=== PATIENT | male | born 1995 | race Two or more races ===

== ENCOUNTER 2017-08-05 23:48 | Emergency (ER) | payer BC, OTHER ==
[2017-08-06 00:09] VITALS: BP 137/83; PULSE 78; TEMP 97.4; BMI 36.3
--- NOTE | 2017-08-06 01:49 | PDOC ---
History of Present Illness <Amanda Sommer - Last Filed: 08/06/17 03:20> - General History Source: Patient Exam Limitations: No Limitations - History of Present Illness Initial Comments: 08/06/17 02:11 The patient is a 21 year old male, with no significant past medical history, who presents to the emergency department with, 2 hours of sudden onset right ear pain. He describes his ear pain as a throbbing sensation with associated mild sore throat. He denies the use of cotton swabs. He denies any recent fevers, chills, headache or dizziness. He denies any recent nausea, vomit, diarrhea or constipation. He denies any recent chest pain or shortness of breath. He denies any recent dysuria, frequency, urgency or hematuria. Allergies: NKA Past surgical history: None reported. Social History: Nonsmoker. Denies EtOH use and recreational drug use. <Karen Romero - Last Filed: 08/06/17 03:24> - General Chief Complaint: Ear Problem Stated Complaint: PAIN Time Seen by Provider: 08/06/17 00:04 Past History - Past Medical History COPD: No - Immunization History Immunization Up to Date: Yes - Suicide/Smoking/Psychosocial Hx Smoking History: Never smoked Have you smoked in the past 12 months: No Information on smoking cessation initiated: No Hx Alcohol Use: No Drug/Substance Use Hx: No Substance Use Type: None <Liana Sommerreen - Last Filed: 08/06/17 03:20> <Karen Romero - Last Filed: 08/06/17 03:24> - Past Medical History Allergies/Adverse Reactions: Allergies Allergy/AdvReac Type Severity Reaction Status Date / Time No Known Allergies Allergy Verified 08/06/17 00:05 Home Medications: Ambulatory Orders NK [No Known Home Medication] 08/06/17 Review of Systems - Review of Systems Able to Perform ROS?: Yes Comments:: 08/06/17 02:11 GENERAL/CONSTITUTIONAL: No fever or chills. No weakness. +HEAD, EYES, EARS, NOSE AND THROAT: Right ear pain. Mild sore throat. No change in vision. No discharge. CARDIOVASCULAR: No chest pain or shortness of breath. RESPIRATORY: No cough, wheezing, or hemoptysis. GASTROINTESTINAL: No nausea, vomiting, diarrhea or constipation. GENITOURINARY: No dysuria, frequency, or change in urination. MUSCULOSKELETAL: No joint or muscle swelling or pain. No neck or back pain. SKIN: No rash NEUROLOGIC: No headache, vertigo, loss of consciousness, or change in strength/ sensation. ENDOCRINE: No increased thirst. No abnormal weight change. HEMATOLOGIC/LYMPHATIC: No anemia, easy bleeding, or history of blood clots. ALLERGIC/IMMUNOLOGIC: No hives or skin allergy. All Other Systems: Reviewed and Negative <Karen Romero - Last Filed: 08/06/17 03:24> *Physical Exam - Vital Signs Last Vital Signs Temp Pulse Resp BP Pulse Ox 97.4 F L 78 20 137/83 98 08/06/17 00:05 08/06/17 00:05 08/06/17 00:05 08/06/17 00:05 08/06/17 00:05 <Amanda Sommer - Last Filed: 08/06/17 03:20> - Vital Signs Last Vital Signs Temp Pulse Resp BP Pulse Ox 97.4 F L 78 20 137/83 98 08/06/17 00:05 08/06/17 00:05 08/06/17 00:05 08/06/17 00:05 08/06/17 00:05 - Physical Exam Comments: 08/06/17 03:24 GENERAL: Awake, alert, and fully oriented, in no acute distress HEAD: No signs of trauma EYES: PERRLA, EOMI, sclera anicteric, conjunctiva clear +ENT: Right ear cerumen impaction. Left Auricle normal inspection, hearing grossly normal, nares patent, oropharynx clear without exudates. Moist mucosa NECK: Normal ROM, supple, no lymphadenopathy, JVD, or masses LUNGS: Breath sounds equal, clear to auscultation bilaterally. No wheezes, and no crackles HEART: Regular rate and rhythm, normal S1 and S2, no murmurs, rubs or gallops ABDOMEN: Soft, nontender, normoactive bowel sounds. No guarding, no rebound. No masses EXTREMITIES: Normal range of motion, no edema. No clubbing or cyanosis. No cords, erythema, or tenderness NEUROLOGICAL: Cranial nerves II through XII grossly intact. Normal speech, normal gait SKIN: Warm, Dry, normal turgor, no rashes or lesions noted. <Karen Romero - Last Filed: 08/06/17 03:24> *DC/Admit/Observation/Transfer - Discharge Dispostion Decision to Admit order: No <Amanda Sommer - Last Filed: 08/06/17 03:20> - Attestations Scribe Attestion: 08/06/17 02:12 Documentation prepared by Karen Romero, acting as medical reception specialist for Amanda Sommer MD. <Karen Romero - Last Filed: 08/06/17 03:24> Diagnosis at time of Disposition: Cerumen impaction - Discharge Dispostion Disposition: HOME Condition at time of disposition: Stable - Referrals Referrals: Edgar Henry MD [Staff Physician] - - Patient Instructions Printed Discharge Instructions: DI for Cerumen Impaction
== END 2017-08-06 03:39 | disposition home or self-care (01) ==
LOC: JER 23:48
PROC: 3E1B78Z Irrigation of Ear using Irrigating Substance, Via Natural or Artificial Opening (ICD-10-PCS; principal; 2017-08-05)
DX: H61.21 Impacted cerumen, right ear (principal)
CPT/HCPCS: 99282-25

== ENCOUNTER 2019-03-20 10:48 | Emergency (ER) | payer BC ==
[2019-03-20 11:10] VITALS: BP 137/94; PULSE 87; TEMP 97.8; BMI 39.5
--- NOTE | 2019-03-20 11:23 | PDOC ---
History of Present Illness - General Chief Complaint: Injury Stated Complaint: RT. HAND INJURY Time Seen by Provider: 03/20/19 11:12 History Source: Patient - History of Present Illness Occurred: reports: other Past History - Past Medical History Allergies/Adverse Reactions: Allergies Allergy/AdvReac Type Severity Reaction Status Date / Time No Known Allergies Allergy Verified 03/20/19 11:07 Home Medications: Ambulatory Orders NK [No Known Home Medication] 08/06/17 COPD: No - Immunization History Immunization Up to Date: Yes - Psycho Social/Smoking Cessation Hx Smoking History: Never smoked Have you smoked in the past 12 months: No Hx Alcohol Use: No Drug/Substance Use Hx: Yes (MARIJUANA) Substance Use Type: None Review of Systems - Review of Systems Constitutional: No: Chills, Fever *Physical Exam - Vital Signs Last Vital Signs Temp Pulse Resp BP Pulse Ox 97.8 F 87 16 137/94 100 03/20/19 11:08 03/20/19 11:08 03/20/19 11:08 03/20/19 11:08 03/20/19 11:08 - Physical Exam General Appearance: Yes: Appropriately Dressed. No: Apparent Distress HEENT: positive: Normal Voice Neck: positive: Supple Respiratory/Chest: negative: Respiratory Distress Extremity: positive: Other (splint/dressing in place to R 3rd digit) Integumentary: positive: Dry, Warm Neurologic: positive: Fully Oriented, Alert, Normal Mood/Affect Medical Decision Making - Medical Decision Making 03/20/19 11:17 23-year-old male here for hand referral. Was diagnosed with R 3rd finger fracture several days ago at [place] after crush injury. Has splint and dressing in place. States he was referred him to a hand surgeon but that MD was too far away so presented to ER today for hand referral. No acute complaints. Given referral for Dr. Baird of orthopedics but told his MD does not accept insurance that he can call the number in the back of his insurance card to be given a list of referrals for hand surgeon Discharge - Discharge Information Problems reviewed: Yes Clinical Impression/Diagnosis: Finger fracture, right Qualifiers: Finger: middle finger Fracture type: closed Phalanx: unspecified phalanx Condition: Good Disposition: HOME - Follow up/Referral Referrals: Kemal Baird DO [Staff Physician] - - Patient Discharge Instructions Additional Instructions: Follow-up with Dr. Baird of orthopedics for continued management of your finger fracture - Post Discharge Activity
== END 2019-03-20 11:35 | disposition home or self-care (01) ==
LOC: JERFT 10:48
DX: Z47.89 Encounter for other orthopedic aftercare (principal); S62.602D Fracture of unspecified phalanx of right middle finger, subsequent encounter for fracture with routine healing; X58.XXXD Exposure to other specified factors, subsequent encounter
CPT/HCPCS: 99281-25